=== PATIENT | male | born 1975 | race Asian ===

== ENCOUNTER 2022-09-23 13:20 | Emergency (ER) | payer OTHER ==
[~2022-09-23] VITALS: Ht 167.6 cm; Wt 77.2 kg
[2022-09-23] MEDS ORDERED: IBUP600T27 PO (16:00)
[2022-09-23 17:08] VITALS: BP 144/87
== END 2022-09-23 17:19 | disposition home or self-care (01) ==
LOC: EDBD 13:20 → EEVIPCON 13:20 → ER 13:20
DX: N43.3 Hydrocele, unspecified (principal); N49.2 Inflammatory disorders of scrotum
CPT/HCPCS: 74176; 76870